=== PATIENT | female | born 1960 | race Caucasian/White ===

== ENCOUNTER → 2020-01-20 12:09 | Outpatient (CLI) | payer OTHER, SELFPAY ==
--- NOTE | ~2020-01-20 | XR_ITS ---
XR abdomen/kub 1V DATE: 01/20/2020 12:26 INDICATION: Abdominal pain TECHNIQUE: AP projection, 2 views COMPARISON: 07/12/[address] abdomen pelvis FINDINGS: Surgical clips, right upper quadrant, consistent with cholecystectomy. 2 surgical clips are noted in the right pelvic area. Radiopaque sutures overlying the stomach in the medial upper aspect of the left abdomen. No visceromegaly is evident. No bowel obstruction is evident. Chronic rounded lower right quadrant abdominal calcification. Bilate ral calcified pelvic phleboliths. No obvious urinary tract calcification. Degenerative spurring of the lower thoracic spine, mild degenerative change of the lumbar spine. IMPRESSION: Postoperative changes of the abdomen and pelvis; no bowel obstruction Reviewed, dictated and finalized at [facility]. Reviewed, dictated and finalized at location B. IMPRESSION: Postoperative changes of the abdomen and pelvis; no bowel obstructi on
== END ==
PROVIDERS: PCP Family Medicine; Visit Provider Physician Assistant
DX: R10.9 Unspecified abdominal pain (principal)
CPT/HCPCS: 74018

== ENCOUNTER → 2020-03-10 09:54 | Outpatient (CLI) | payer OTHER, SELFPAY ==
--- NOTE | ~2020-03-10 | XR_ITS ---
XR shoulder LT min 2V DATE: 03/10/2020 10:43 INDICATION: Left shoulder pain TECHNIQUE: 4 views COMPARISON: None FINDINGS: There is prominent diffuse osteopenia. C6-C7 cervical anterior surgical fusion is noted. No fracture or dislocation, periosteal reaction or bone destruction or abnormal soft tissue calcifica tion of the left shoulder. IMPRESSION: Osteopenia Status post anterior cervical spinal surgical fusion at C6-7 Reviewed, dictated and finalized at location B. GANIC CHEMICAL TECHNICIAN
--- NOTE | ~2020-03-10 | XR_ITS ---
XR cervical spine 4-5V DATE: 03/10/2020 10:43 INDICATION: Neck pain TECHNIQUE: Standing AP, open-mouth, odontoid, lateral and swimmer views COMPARISON: None FINDINGS: Diffuse osteopenia. There is straightening of the cervical spine. There is moderate degenerative disc disease with anterior spurring at C4-5 and particularly C5-6. Status post anterior surgical fusion by plate and screws at C6-7. There is mild uncovertebral joint spurring at C5-6. C1 and C2 are normally aligned and the odontoid process is intact. No fracture or dislocation or lock ed facet or prevertebral soft tissue swelling is detected. There is levoscoliosis of the upper thoracic spine. IMPRESSION: Straightening of the cervical spine Moderate degenerative disc disease at C4-5 and particularly C5-6 Status post anterior surgical fusion at C6-7 Reviewed, dictated and finalized at location B. S CONSOLE OPERATOR TRACK
== END ==
PROVIDERS: PCP Family Medicine; Visit Provider Family Medicine
DX: M85.822 Other specified disorders of bone density and structure, left upper arm (principal); M47.812 Spondylosis without myelopathy or radiculopathy, cervical region; Z98.1 Arthrodesis status
CPT/HCPCS: 72050; 73030

== ENCOUNTER → 2020-04-05 09:14 | Outpatient (CLI) | payer OTHER, SELFPAY ==
--- NOTE | ~2020-04-05 | XR_ITS ---
XR foot LT 2V DATE: 04/05/2020 09:34 INDICATION: Left foot injury, pain TECHNIQUE: AP and lateral views COMPARISON: 01/23/2015 left foot FINDINGS: There is evidence of a cortical fracture of the lateral aspect of the fused middle phalanx of the fifth toe, new since 01/23/2015. No other fracture or dislocation is evident. No periosteal reaction or bone destruction. Plantar and posterior calcaneal enthesopathy. IMPRESSION: Cortical fracture lateral aspect of fused middle phalanx of fifth toe Plantar and posterior calcaneal enthesopathy Reviewed, dictated and finalized at location B. E PURCHASE TRUCK DRIVER IMPRESSION: Cortical fracture lateral aspect of fused middle phalanx of fifth t oe Plantar and posterior calcaneal enthesopathy
== END ==
PROVIDERS: Visit Provider Physician Assistant
DX: S99.929A Unspecified injury of unspecified foot, initial encounter (principal); S92.522A Displaced fracture of middle phalanx of left lesser toe(s), initial encounter for closed fracture; M77.32 Calcaneal spur, left foot
CPT/HCPCS: 73620

== ENCOUNTER → 2020-05-31 08:47 | Outpatient (CLI) | payer BC, SELFPAY ==
--- NOTE | ~2020-05-31 | MR_ITS ---
EXAMINATION: MR cervical spine wo/w con DATE: 05/31/2020 09:46 INDICATION: Neck pain. TECHNIQUE: Magnetic resonance imaging (MRI) of the cervical spine was performed without and with 20 m L MultiHance intravenous contrast. Sequences included sagittal and axial T2-weighted FSE, sagittal ST IR FSE, and sagittal and axial T1-weighted FSE. Postcontrast sequences included sagittal and axial T1 -weighted FS FSE. COMPARISON: Cervical spine radiographs 03/10/2020 FINDINGS: There is hypolordosis of cervical spine. Vertebral body heights are normal. There are marcano es of anterior fusion procedure at C6-C7 with discectomy, interbody bone graft, and anterior plate an d screws. There is mildly decreased disc height at C4-C5 and moderately decreased disc height at C5-C 6. There is a hemangioma in T3 vertebral body. The spinal cord signal intensity is normal. The follow ing disc levels are specifically discussed: C2-C3: The disc does not extend beyond the endplate margin. There is no uncovertebral joint osteoarth ritis. There is mild right and moderate left facet joint osteoarthritis. There is no neural foraminal stenosis. There is no central canal stenosis. C3-C4: There is a left central extrusion. There is mild left uncovertebral joint osteoarthritis. Ther e is mild bilateral facet joint osteoarthritis. There is mild left neural foraminal stenosis. There i s mild central canal stenosis with ventral indentation of the spinal cord. C4-C5: The disc is bulging. There is mild left uncovertebral joint osteoarthritis. There is severe ri ght and moderate left facet joint osteoarthritis. There is mild left neural foraminal stenosis. There is mild central canal stenosis with ventral indentation of the spinal cord. C5-C6: The disc is bulging. There is moderate bilateral uncovertebral joint osteoarthritis. There is moderate bilateral facet joint osteoarthritis. There is mild bilateral neural foraminal stenosis. The re is mild central canal stenosis with ventral indentation of the spinal cord. C6-C7: There is no uncovertebral joint hypertrophy. There is no facet joint hypertrophy. There is no neural foraminal stenosis. There is no central canal stenosis. C7-T1: The disc does not extend beyond the endplate margin. There is no uncovertebral joint osteoarth ritis. There is mild bilateral facet joint osteoarthritis. There is mild right neural foraminal steno sis. There is no central canal stenosis. IMPRESSION: 1. Moderate cervical spondylosis. 2. Anterior fusion procedure at C6-C7. Reviewed, dictated and finalized at location A. D INSTALLER
[2020-05-31 09:17] LABS: Estimated Glomerular Filt Rate > 60
== END ==
PROVIDERS: Visit Provider Physical Medicine & Rehabilitation Pain Medicine
DX: Z98.1 Arthrodesis status (principal); M47.813 Spondylosis without myelopathy or radiculopathy, cervicothoracic region; M48.03 Spinal stenosis, cervicothoracic region
CPT/HCPCS: 72156; A9577

== ENCOUNTER 2022-06-18 09:36 | Emergency (ER) | payer BC, SELFPAY ==
[2022-06-18] VITALS (9 sets, daily range): BP systolic 115–185; BP diastolic 82–103; PULSE 106–136; RESP 13–20; TEMP 36.6; O2SAT 97–100
--- NOTE | ~2022-06-18 | CT_ITS ---
EXAMINATION: CTA chest PE protocol DATE: 06/18/2022 11:01 INDICATION: Tachycardia. TECHNIQUE: Computed tomography angiography (CTA) of the chest was performed with 200 mL Omnipaque-350 intravenous contrast timed to evaluate the pulmonary arteries. Coronal maximum intensity projection 3D-reconstructions were created by the technologist. Automated exposure control and iterative reconst ruction technique were employed. The dose-length product was 1352.18 mGy-cm. COMPARISON: CT abdomen and pelvis 07/12/2014 FINDINGS: The lungs demonstrate mild atelectasis. There is mild scarring in paraspinal right lower lo be. No pleural effusion. The heart size is normal. No pericardial effusion. There is no pulmonary emb olus. There is a small sliding hiatal hernia. There are changes of gastric sleeve procedure. There ar e changes of cholecystectomy. There are changes of anterior fusion procedure in cervical spine. There is mild thoracic spondylosis. There is mild chronic height loss of T11 and T12 vertebral bodies. IMPRESSION: 1. No pulmonary embolus. Reviewed, dictated and finalized at location A. 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 No pulmonary embolus.
--- NOTE | 2022-06-18 09:52 | ECG_ITS ---
Measurements Intervals Cable Rate: 121 P: 29 DE: 140 QRS: 76 QRSD: 89 T: -50 QT: 316 QTc: 449 Interpretive Statements SINUS TACHY[address] DEVIATION AND MODERATE T-WAVE ABNORMALITY, CONSIDER INFERIOR ISCHEMIA [-0.1+ mV T-WAVE IN II/aVF] NO PREVIOUS ECG AVAILABLE FOR COMPARISON Electronically Signed On 06-18-2022 11:37:17 [employer] by Emelyn Chavez M.D.
[2022-06-18 10:18] LABS: Basophils Absolute Auto 0.1 K/mm3 (0.0-0.1); Basophils Percent Auto 0.6 % (0.2-1.2); Eosinophils Absolute Auto 0.3 K/mm3 (0-0.3); Eosinophils Percent Auto 1.4 % (0-4.4); Hematocrit 38.4 % (37.0-47.0); Hemoglobin 12.4 g/dL (12.0-15.0); Immature Granulocyte Percent A 1.1 % (0-0.5); Lymphocytes Absolute Auto 3.26 K/mm3 (0.9-3.2); Lymphocytes Percent Auto 17.9 % (18.3-44.2); Mean Corpuscular HGB Conc 32.3 g/dl (32-36); Mean Corpuscular Volume 83.5 fl (80-100); Mean Platelet Volume 8.3 fl (7.4-10.4); Monocytes Absolute Auto 0.7 K/mm3 (0.1-0.6); Monocytes Percent Auto 3.6 % (2.6-8.5); Neutrophils Absolute Auto 13.7 K/mm3 (1.3-6.7); Neutrophils Percent Auto 75.4 % (45.5-73.1); Platelet Count Result 411 k/mm3 (150-375); Red Cell Distribution Width 13.7 % (11.5-14.5); White Blood Count 18.2 K/mm3 (4.5-10.0)
[2022-06-18 10:28] LABS: Alanine Aminotransferase 20 U/L (6-35); Albumin Level 4.1 g/dL (3.5-5.1); Alkaline Phosphatase 77 U/L (38-126); Anion Gap 12 mmol/L (8-16); Aspartate Amino Transferase 20 U/L (14-36); Bilirubin,Total 0.6 mg/dL (0.2-1.3); Blood Urea Nitrogen 12 mg/dL (7-17); Calcium 9.2 mg/dL (8.4-10.2); Carbon Dioxide 22 mmol/L (22-30); Chloride 102 mmol/L (98-107); Estimated CRCL calculation 116 ml/min; Estimated Glomerular Filt Rate > 60; Glucose 202 mg/dL (65-110); Potassium 3.1 mmol/L (3.4-5.0); Sodium 136 mmol/L (137-145)
[2022-06-18 10:29] LABS: Lactic Acid Reflex 4.4 mmol/L (0.7-2.0); Prothrombin Time 12.3 Seconds (11.1-14.7)
[2022-06-18 10:30] LABS: Partial Thromboplastin Time 24.7 SECONDS (22.3-36.8)
[2022-06-18] MEDS: SODIUM CHLORIDE 0.9% IV 1,000 ML 999 ML IV CONT ×3 (11:05→16:33)
[2022-06-18 11:33] LABS: Influenza A QL RT-PCR Negative (Negative); Influenza B QL RT-PCR Negative (Negative); RSV RNA, RT-PCR Negative (Negative); SARS-CoV-2 RNA PCR Positive
--- NOTE | 2022-06-18 11:51 | ED.GENADULT ---
HPI - General Adult General Chief complaint: Recheck/Abnormal Lab/Rx Stated complaint: rash/high bp Time Seen by Provider: 06/18/22 09:57 History of Present Illness HPI narrative: 62-year-old female presenting to the emergency department for evaluation of of rash and tachycardia. Patient was diagnosed with COVID on the . Patient had follow-up with prompt care and was started on steroids, Paxlovid for her COVID. Patient was also started on nystatin for a suspected candidal fungal infection under her pannus. Patient was also started on Augmentin at that time. In response to the antibiotics and nystatin patient states that the beefy red rash has improved. After starting the Augmentin patient began to have some particular rash develop on her abdomen and legs. Patient states the rash does not hurt but states it also does not itch. Upon arrival to the emergency department patient was tachycardic. Related Data Home Medications Medication Instructions Recorded Confirmed omeprazole 20 mg capsule,delayed 20 mg PO DAILY 01/07/20 10/17/21 release omega 4-ean-jnu-fish oil 300 1 cap PO DAILY 06/18/22 mg-1,000 mg capsule,delayed release (Fish Oil) Allergies Allergy/AdvReac Type Severity Reaction Status Date / Time Cephalosporins Allergy Mild RASH Verified 06/18/22 09:56 cephalexin Allergy Unknown rash Verified 06/18/22 09:56 Review of Systems Review of Systems: CONSTITUTIONAL: See HPI EYES: Denies visual changes, redness, or discharge. ENT: Denies rhinorrhea, congestion, sore throat, or otalgia. CARDIOVASCULAR: Denies chest pain, palpitations, or edema. RESPIRATORY: See HPI GASTROINTESTINAL: Denies abdominal pain, nausea, vomiting, or diarrhea. GENITOURINARY: Denies dysuria or hematuria. SKIN: See HPI MUSCULOSKELETAL: Denies back pain, joint pain, or myalgia. NEUROLOGIC: Denies headache, numbness, or weakness. [facility] Past Medical History Medical History Anxiety Depression Diabetes Diabetic neuropathy associated with type 2 diabetes mellitus Encounter for immunization Essential hypertension HLD (hyperlipidemia) Ulcerative colitis Surgical History Surgical History H/O: hysterectomy Hx of laparoscopic gastric banding Family History Family History (Reviewed 06/18/22 @ 09:11 by Nora Sharma [facility] [address]) Mother Hypertension Father Carcinoma of colon Social History Social History (Reviewed 06/18/22 @ 09:11 by Nora Sharma [facility]) Smoking status: Never smoker Second hand tobacco smoke exposure: No Smoking end date: 04/21/04 Alcohol intake: current Substance use: never Substance use type: does not use Gender identity (if verbalized by the patient): Female Spiritual care concerns: No Agree to blood products: Yes Exam Narrative: APPEARANCE: Well appearing, no pain, no distress, well-nourished. HEAD: normocephalic, atraumatic. EYES: PERRLA/EOMI, conjunctivae clear. NOSE: Normal no drainage EARS:TMS clear with good light reflex. THROAT: Pharynx clear, no exudate. NECK: Supple. No adenopathy, no masses. RESPIRATORY: Airway patent, respirations nonlabored. Clear to auscultation bilaterally, no rales, rhonchi, wheezing. CARDIOVASCULAR: Tachycardia ABDOMINAL: Soft, nontender, nondistended, normal bowel sounds MUSCULOSKELETAL: Moves all extremities. Strength/ROM intact, No edema, No calf tenderness. NEURO: Alert. Cranial nerves II through XII intact. Good gait. Good coordination SKIN: Healing candidal rash that is not beefy red in appearance. Patient does have hives and a suspected drug rash developing on her thighs chest and abdomen. Course Course Emergency Course: 62-year-old female with tachycardia rash after COVID. CTA was ordered to rule out pulm embolism and CT showed no evidence of PE. Patient was afebrile but does have a leukocytosis of 18.2. Patient is cur
[2022-06-18] MEDS: POTASSIUM CHLORIDE 20 MEQ PACKET (FOR LIQUID) 40 MEQ PO (12:04)
[2022-06-18 13:15] LABS: Reflex Lactic Acid Yes or No Add Lactic
[2022-06-18 14:38] LABS: Lactic Acid 1.7 mmol/L (0.7-2.0)
--- NOTE | 2022-06-18 18:46 | PC.NURSE ---
PT STATED HE DID NOT WANT ME IN HIS ROOM WHEN ASKED TO GO IN AND HELP PT. PT STATED HE DIDNT WANT ME IN HIS ROOM BECAUSE HE DIDNT LIKE ME.
== END 2022-06-18 19:02 | disposition home or self-care (01) ==
PROVIDERS: Emergency Provider Emergency Medicine; PCP Family Medicine
DX: T78.40XA Allergy, unspecified, initial encounter (principal); R00.0 Tachycardia, unspecified; U07.1 COVID-19; F41.9 Anxiety disorder, unspecified; F32.9 Major depressive disorder, single episode, unspecified; E11.40 Type 2 diabetes mellitus with diabetic neuropathy, unspecified; I10 Essential (primary) hypertension; E78.5 Hyperlipidemia, unspecified
CPT/HCPCS: 36415; 71275; 80053; 83605; 85025; 85610; 85730; 87637; 93005; 96360; 96361; 99284; A9270; J7030; Q9967